=== PATIENT | female | born 1985 | race Caucasian/White ===

== ENCOUNTER 2024-01-05 08:37 | Emergency (ER) | payer OTHER, SELFPAY ==
[2024-01-05 08:46] VITALS: BP 143/98; PULSE 100; RESP 16; TEMP 36.6; O2SAT 98; BMI 24.7
[2024-01-05] MEDS: FLUORESCEIN 1 MG STRIP EYE-LEFT (08:56)
[2024-01-05] MEDS: PROPARACAINE 0.5% OPHTH SOL 1 DROPS EYE-LEFT (08:56)
--- NOTE | 2024-01-05 09:00 | ED_ITS ---
HPI - Eye Problem General Chief complaint: Eye Problems Stated complaint: L/eye pain/thinks scratched it during the night Time Seen by Provider: 01/05/24 08:47 History of Present Illness HPI Narrative: Patient is a healthy 38-year-old female who presents today with left eye irritation. She reports that she woke up around 1:00 a.m. this morning and felt like something was in her eye. She is sensitive to light it is quite irritated. No significant drainage. She works at a [employer] shop she does not remember getting anything in her eye at that time. Does not wear contacts or glasses Related Data Previous Rx's Medication Instructions Recorded gentamicin 0.3 % eye drops 2 drp EYE-LEFT Q4HRWA #5 mL 01/05/24 Allergies Allergy/AdvReac Type Severity Reaction Status Date / Time No Known Drug Allergies Allergy Verified 01/05/24 08:55 Patient History Social History Smoking Status: Current every day smoker Smoking Status: Current every day smoker tobacco type: cigarettes Substance Use Type: marijuana Exam Initial Vital Signs Initial Vital Signs: Vital Signs Temperature 97.8 F 01/05/24 08:46 Pulse Rate 100 H 01/05/24 08:46 Respiratory Rate 16 01/05/24 08:46 Blood Pressure 143/98 H 01/05/24 08:46 Pulse Oximetry 98 01/05/24 08:46 Oxygen Delivery Method Room Air 01/05/24 08:46 GENERAL: Well-appearing, well-nourished and in no acute distress. Left eye was treated with proparacaine, stained with fluorescein. No dye uptake. No foreign body. Eyelid inverted for exam no stye or obvious foreign body eye was irrigated with to 10 cc flushes of normal saline CARDIOVASCULAR: peripheral pulses in tact, cap refill <2 sec RESPIRATORY: No respiratory distress, speaks in full sentences without difficulty EXTREMITIES: Normal range of motion, no clubbing or edema. Neurovascularly intact NEUROLOGICAL: Cranial nerves II through XII grossly intact. Normal gait and sp eech. SKIN: Warm, dry, no petechiae, no rashes or lesions. Course Orders Ordered: Discontinued Medications Fluorescein Sodium (Fluorescein 1 Mg Strip) 1 mg EYE-LEFT NOW ONE Stop: 01/05/24 08:46 Last Admin: 01/05/24 08:56 Dose: 1 mg Documented By: CTS Proparacaine HCl (Proparacaine 0.5% Ophth Viviane) 1 drops EYE-LEFT NOW ONE Stop: 01/05/24 08:46 Last Admin: 01/05/24 08:56 Dose: 1 drop Documented By: CTS Vital Signs Vital signs: Vital Signs - 8 hr 01/05/24 08:46 01/05/24 09:22 Temperature 97.8 F 98 F Pulse Rate 100 H 82 Respiratory Rate 16 18 Blood Pressure 143/98 H 130/87 Pulse Oximetry 98 98 Oxygen Delivery Method Room Air Room Air MDM - Eye Problem MDM Narrative Medical decision making narrative: Patient healthy 38-year-old female presents today with left eye irritation. No obvious corneal abrasion or eye trauma. It was irrigated and evaluated. It is injected and erythematous will treat for conjunctivitis with antibiotics Discharge Plan Departure Patient Disposition: Home Clinical Impression: Conjunctivitis Instructions: Conjunctivitis Activity Restrictions/Additional Instructions: *You have been diagnosed with conjunctivitis *What to do: At this time no obvious bruise to your eye but will treat for infection. May need to wear sunglasses expect to be sensitive to suddenly *Continue to take medications as directed Gentamicin 2 drops left eye every 4 hours while awake for 1 week Tylenol Motrin as needed for pain *Follow up with your primary care provider in 2-3 days or call [phone] *Return to ER if you should have increased pain swelling fever drainage visual changes [or] any new, worsening or concerning symptoms Prescriptions: New gentamicin 0.3 % drops 2 drp EYE-LEFT Q4HRWA Qty: 5 0RF Referrals: ProviderFaizan [Primary Care Provider] - Stand Alone Forms: Patient Portal/API
[2024-01-05 09:22] VITALS: BP 130/87; PULSE 82; RESP 18; TEMP 36.6; O2SAT 98
== END 2024-01-05 09:23 | disposition home or self-care (01) ==
PROVIDERS: Emergency Provider Emergency Medicine
DX: H10.9 Unspecified conjunctivitis (principal)
CPT/HCPCS: 99282